=== PATIENT | male | born 1990 | race Caucasian/White ===

== ENCOUNTER 2016-11-24 15:05 | Emergency (ER) | payer OTHER ==
[~2016-11-24] VITALS: Ht 182.9 cm; Wt 81.6 kg
--- NOTE | 2016-11-24 15:53 | ED Upper Extremity ---
General Chief Complaint: Laceration Stated Complaint: LT KNUCKLE LACERATION Source: patient Exam Limitations: no limitations History of Present Illness Time seen by provider: 15:52 Initial Comments Patient was at work with [employer] in [place] when a pipe wrench fell on the dorsal aspect of the left hand and he has a laceration over the dorsal MCP joint fifth finger. Tetanus is not up-to-date. Onset: just prior to arrival Severity: moderate Pain/Injury Location: left 5th finger Modifying Factors: Worse With Movement Constitutional: see HPI EENTM: see HPI Respiratory: no symptoms reported Cardiovascular: no symptoms reported Musculoskeletal: see HPI Skin: no symptoms reported Psychiatric/Neurological: No Symptoms Reported Past [id number] Hx Patient Social History Recent Foreign Travel: No Contact w/Someone Who Travel: No Physical Exam Vital Signs Capillary Refill : General Appearance: WD/WN, no apparent distress HEENT: PERRL/EOMI, normal ENT inspection Respiratory: normal breath sounds, no respiratory distress, no accessory muscle use Shoulder: normal inspection, non-tender Elbow/Forearm: normal inspection, non-tender, Left Wrist: Yes normal inspection, Yes non-tender Hand: Left, laceration (1 cm laceration over the dorsal aspect of the fifth MCP joint left hand with active bleeding. This does not appear to extend into the joint capsule nor does appear to injure the extensor tendon.) Neurologic/Tendon: normal sensation, normal motor functions, normal tendon functions Neurologic/Psychiatric: alert, normal mood/affect, oriented x 3 Skin: normal color, warm/dry Laceration Repair : Wound Location: Upper Extremities Wound Length (cm): 1 Wound's Depth, Shape: sub Q Wound Explored: clean Irrigated w/ Saline (ccs): 200 Betadine Prep?: Yes Anesthesia: 1% Lidocaine Volume Anesthetic (ccs): 2 Suture: Prolene Suture Size: 4-0 Number of Sutures: 5 Layer Closure?: 1 Number Deep Layer Sutures: 0 Progress Anesthetized with 3 mL of 2 percent lidocaine without epinephrine. Scrubbed with chlorhexidine/saline solution. Irrigated with 200 mL of the same. Bleeding vessel cauterized with cautery pen. Closed with 5 simple interrupted sutures size 4-0 Prolene. Departure Impression Impression: Primary Impression: Hand laceration Disposition: 01 HOME, SELF-CARE Condition: Stable Departure-Patient Inst. Decision time for Depature: 15:56 Referrals: NO,LOCAL PHYSICIAN (PCP/Family) Primary Care Physician Patient Instructions: Laceration Repair With Stitches (DC) Add. Discharge Instructions: 1. Wear the splint at all times except when showering for the next 3 days after this you may take the splint off. Keep covered with a Band-Aid all times except when showering for the next 3 days. After that you may leave it open to air if you wish. He may shower starting tonight. However, do not soak it in water such as a hot tub, swimming pool or dish sink until the stitches have been removed Return to the emergency room in about 10-12 days at a time of your convenience to have the stitches removed. Return to ER before then for any sign of infection such as redness or swelling. At that point you may need an antibiotic. All discharge instructions reviewed with patient and/or family. Voiced understanding. SANAM GOODEN APRN Nov 24, 2016 15:53
[2016-11-24] MEDS ORDERED: TETANUS,DIPTH,PERTUSS P/F (BOOSTRIX) 0.5 ML VIAL IM ONE (16:00)
[2016-11-24 16:14] VITALS: BP 125/66
== END 2016-11-24 16:15 | disposition home or self-care (01) ==
LOC: ER 15:09
DX: S61.412A Laceration without foreign body of left hand, initial encounter (principal); Z23 Encounter for immunization; W20.8XXA Other cause of strike by thrown, projected or falling object, initial encounter; Y99.0 Civilian activity done for income or pay
CPT/HCPCS: 12001; 90715